=== PATIENT | male | born 1995 | race Caucasian/White ===

== ENCOUNTER 2018-03-14 16:29 | Emergency (ER) | payer MEDICAID ==
[~2018-03-14] VITALS: Ht 185.4 cm; Wt 81.6 kg
--- NOTE | 2018-03-14 17:32 | Emergency Room Report ---
History of Present Illness General Chief Complaint: Lower Extremity Injury Source: Patient Present Illness HPI 22-year-old male with no significant past medical history here complaining of one day of right knee pain after delivery football players fell on his knee one day above. Denies twisting injury patient is rating the pain 5 out of 10 intermittent on the medial side of his right knee without any pain radiation denying tingling and numbness has taken Advil with minimal improvement. Denies chest pain, shortness of breath, palpitation, and all other associated symptoms Allergies: Coded Allergies: No Known Allergies (Unverified , 03/14/18) Patient History Past Medical History: see triage record Past Surgical History: none Immunizations: UTD Reviewed Nursing Documentation: PMH: Agreed; PSxH: Agreed Nursing Documentation-PMH Past Medical History: No Stated History Review of Systems All Other Systems: negative except mentioned in HPI Physical Exam Vital Signs Date Time Temp Pulse Resp B/P (MAP) Pulse Ox O2 Delivery O2 Flow Rate FiO2 03/14/18 16:40 97.9 57 16 130/71 99 Room Air 97.9 Sp02 EP Interpretation: reviewed, normal General Appearance: normal inspection, well appearing, no apparent distress, alert, GCS 15 Head: normocephalic, atraumatic Eyes: bilateral eye normal inspection, bilateral eye PERRL ENT: normal ENT inspection, hearing grossly normal, normal pharynx Neck: normal inspection, full range of motion, supple Respiratory: normal inspection, lungs clear, no rhonchi, no wheezing Cardiovascular #1: normal inspection, no edema, no murmur Gastrointestinal: normal inspection, soft Rectal: deferred Genitourinary: deferred Musculoskeletal: back normal, swelling - right medial knee, negative neck nares and negatives anterior drawer sign Neurologic: normal inspection, alert, oriented x3, responsive Psychiatric: normal inspection, judgement/insight normal, memory normal Skin: normal inspection, normal color, no rash, warm/dry Lymphatic: normal inspection, no adenopathy, axilla node tender (R) Medical Decision Making PA Attestation All diagnoses and treatment plans were reviewed and discussed with my supervising physician Dr. Hudson Diagnostic Impression: Primary Impression: Contusion of right knee Additional Impression: Sprain of right knee ER Course 22-year-old male with no significant past medical history here complaining of one day of right knee pain after delivery football players fell on his knee one day above. Denies twisting injury patient is rating the pain 5 out of 10 intermittent on the medial side of his right knee without any pain radiation denying tingling and numbness has taken Advil with minimal improvement. Denies chest pain, shortness of breath, palpitation, and all other associated symptoms Ddx considered but are not limited to right knee contusion, right knee sprain, right knee fx Vital signs: are WNL, pt. is afebrile H&PE are most consistent with right knee sprain ORDERS: x-ray right knee, naproxen ED INTERVENTIONS: None required at this time. DISCHARGE: At this time pt. is stable for d/c to home. Will provide printed patient care instructions, and any necessary prescriptions. Care plan and follow up instructions have been discussed with the patient prior to discharge. rice guidelines given the patient follow with a primary care provider if symptoms continue Other X-Ray Diagnostic Results Other X-Ray Diagnostic Results : X-Ray ordered: right knee x-ray # of Views/Limited Vs Complete: 2 View Indication: Swelling EP Interpretation: Yes PA Xray: Interpretation reviewed, by supervising MD, and agrees with findings. Interpretation: no dislocation, no soft tissue swelling, no fractures Impression: No acute disease Electronically Signed by: Colt RILEY Scribe Text no acute changes Last Vital Signs Date Time Temp Pulse Resp B/P (MAP) Pulse Ox O2 Delivery O2 Flow Rate FiO2 03/14/18 16:40 97.9 57 16 130/71 99 Room Air 97.9 Disposition: HOME, SELF-CARE Condition: Stable Scripts Naproxen* (NAPROXEN*) 500 Mg Tablet 500 MG ORAL TWICE A DAY, #30 TAB Prov: Colt Maharaj 03/14/18 Patient Instructions: Knee Sprain Additional Instructions: take medication as directed follow with a primary care provider for possible MRI and with strenuous physical activity and avoid contact sports Colt Maharaj Mar 14, 2018 17:32
[2018-03-14] MEDS ORDERED: NAPROXEN500 M2 ORAL (17:34)
[2018-03-14 17:38] VITALS: BP 130/71
--- NOTE | 2018-03-15 14:41 | Diagnostic Imaging Report ---
Indication: Pain, trauma Technique: XRAY Knee 3v R Comparison: None Findings: Bony mineralization is within normal limits. There is no evidence of acute fracture or dislocation. Anatomic alignment and joint spaces appear preserved. No significant suprapatellar joint effusion. No radiopaque foreign body. Impression: No evidence of acute fracture or dislocation.
== END 2018-03-14 17:38 | disposition home or self-care (01) ==
LOC: EMR 17:29
DX: S83.91XA Sprain of unspecified site of right knee, initial encounter (principal); W51.XXXA Accidental striking against or bumped into by another person, initial encounter; Y93.61 Activity, american tackle football; Y92.39 Other specified sports and athletic area as the place of occurrence of the external cause
CPT/HCPCS: 99283